=== PATIENT | female | born 1940 | race African-American/Black ===

== ENCOUNTER → 2016-10-06 | Day surgery (SDC) | payer MEDICARE, MEDICAID ==
[~2016-10-06] MED LIST: AMLO2.5T45 PO; CHOL500010 PO; LIDOCAINE HCL/EPINEPHRINE 1%-EPI 1:100,000 30 ML VIAL INFIL ONE; NAP5EC PO; ROSU10TA PO; SODIUM BICARBONATE 4% (2.4MEQ) 5ML VIAL IV ONE
== END | disposition home or self-care (01) ==
LOC: RAD 10:26
PROVIDERS: ATTEND Surgery
DX: C50.911 Malignant neoplasm of unspecified site of right female breast (principal)
CPT/HCPCS: 19083; 88305; A4648; J3490

== ENCOUNTER → 2017-02-06 | Outpatient (CLI) | payer MEDICARE, MEDICAID ==
[~2017-02-06] MED LIST changes: +IOHEXOL-300 100 ML BOTTLE ONE; -LIDOCAINE HCL/EPINEPHRINE 1%-EPI 1:100,000 30 ML VIAL INFIL ONE; -SODIUM BICARBONATE 4% (2.4MEQ) 5ML VIAL IV ONE; +SODIUM CHLORIDE 0.9% 10ML VIAL ONE
== END | disposition home or self-care (01) ==
LOC: CT 09:49
PROVIDERS: ATTEND Internal Medicine Hematology & Oncology
DX: C50.112 Malignant neoplasm of central portion of left female breast (principal); C18.6 Malignant neoplasm of descending colon; K76.89 Other specified diseases of liver; K42.9 Umbilical hernia without obstruction or gangrene
CPT/HCPCS: 71260; 74160; A4216; Q9967

== ENCOUNTER 2017-03-19 14:30 | Emergency (ER) | payer MEDICARE, MEDICAID ==
[~2017-03-19] VITALS: Ht 157.5 cm; Wt 75.0 kg
[~2017-03-19 14:30] MED LIST changes: -IOHEXOL-300 100 ML BOTTLE ONE; -SODIUM CHLORIDE 0.9% 10ML VIAL ONE
[2017-03-19 16:15] LABS: HEMATOCRIT. 34.1 % (36.0-48.0); HEMOGLOBIN. 11.3 g/dL (12.0-16.0); MEAN CORPUSCULAR VOLUME 102.2 fL (81.0-99.0); MEAN PLATELET VOLUME 7.5 fl (7.4-10.4); PLATELET 226 x1000/uL (130-400); RED BLOOD CELL COUNT 3.34 mill/uL (4.2-5.4)
[2017-03-19 16:22] LABS: CHLORIDE 105 mEq/L (98-107); INR 1.1; PARTIAL THROMBOPLASTIN TIME 25.2 sec (23.4-31.0); PROTHROMBIN TIME 11.6 sec (9.4-11.6)
[2017-03-19 16:27] LABS: CARBON DIOXIDE 28 mEq/L (21-32)
[2017-03-19 16:31] LABS: CREATINE KINASE 62 IU/L (26-192); TROPONIN I < 0.02 ng/mL (0.00-0.04)
[2017-03-19 17:07] LABS: PLATELET ESTIMATE NORMAL
[2017-03-19 18:06] VITALS: BP 154/88
== END 2017-03-19 19:00 | disposition home or self-care (01) ==
LOC: ER 16:03
DX: R60.9 Edema, unspecified (principal); I10 Essential (primary) hypertension; Z88.0 Allergy status to penicillin; Z85.3 Personal history of malignant neoplasm of breast; Z92.21 Personal history of antineoplastic chemotherapy
CPT/HCPCS: 36415; 71010; 80053; 82550; 83690; 83880; 84484; 85025; 85610; 85730; 93005; 93970; 99285

== ENCOUNTER 2017-05-13 16:17 | Emergency (ER) | payer MEDICARE, MEDICAID ==
[~2017-05-13] VITALS: Ht 157.5 cm; Wt 70.0 kg
[2017-05-13 19:11] LABS: HEMATOCRIT. 38.5 % (36.0-48.0); HEMOGLOBIN. 13.1 g/dL (12.0-16.0); MEAN CORPUSCULAR HEMOGLOBIN 34.6 pg (28.0-32.0); MEAN CORPUSCULAR VOLUME 101.5 fL (81.0-99.0); MEAN PLATELET VOLUME 8.5 fl (7.4-10.4); PLATELET 261 x1000/uL (130-400); RED BLOOD CELL COUNT 3.79 mill/uL (4.2-5.4)
[2017-05-13 19:31] LABS: PLATELET ESTIMATE NORMAL
[2017-05-13 19:50] VITALS: BP 138/72
== END 2017-05-13 20:13 | disposition home or self-care (01) ==
LOC: ER 18:42
DX: R60.9 Edema, unspecified (principal); I10 Essential (primary) hypertension; N61.0 Mastitis without abscess; Z88.0 Allergy status to penicillin
CPT/HCPCS: 36415; 85025; 87040; 93971; 99285